=== PATIENT | female | born 1965 | race Caucasian/White ===

== ENCOUNTER 2018-03-18 08:20 | Day surgery (SDC) | payer BC, OTHER ==
[~2018-03-18 08:20] MED LIST: ACETAMINOPHEN 1,000 MG/100 ML BTL IV ONE; CEFAZOLIN 2 Gram 2 GM/50 ML BAG IVPB ONE
[2018-03-18] MEDS ORDERED: FENTANYL PF 100MCG/2ML VIAL IV ONE (08:21)
[2018-03-18] MEDS ORDERED: ROCURONIUM BROMIDE 50MG/5ML VIAL IV ONE (08:21)
[2018-03-18] MEDS ORDERED: MIDAZOLAM HCL 2MG/2ML VIAL IV ONE (08:21)
[2018-03-18] MEDS ORDERED: BUPIVACAINE 0.5% W/EPI MPF 30 ML VIAL IVP ONE (08:21)
[2018-03-18] MEDS ORDERED: MORPHINE SULFATE PF 10MG/10ML VIAL IV ONE (08:21)
[2018-03-18] MEDS ORDERED: BUPIVACAINE LIPOSOME/PF 133MG/10ML VIAL IV ONE (08:21)
[2018-03-18] MEDS ORDERED: ONDANSETRON HCL IV 4 MG/2 ML VIAL IVP ONE (08:21)
[2018-03-18] MEDS ORDERED: KETOROLAC 30 MG/ML VIAL IVP ONE (08:21)
[2018-03-18] MEDS ORDERED: METHYLPREDNISOLONE 40MG/VIAL IM ONE (08:21)
[2018-03-18] MEDS ORDERED: BUPIVACAINE 0.5% (5MG/ML) PF 30ML VIAL IVP ONE (08:21)
[2018-03-18] MEDS ORDERED: SUCCINYLCHOLINE 20 MG/ML 10ML IVP ONE (08:21)
[2018-03-18] MEDS ORDERED: DEXAMETHASONE 4 MG/ML 1ML VIAL IVP ONE (08:21)
[2018-03-18] MEDS ORDERED: LIDOCAINE 2% MDV (20MG/ML) 20ML VIAL IV ONE (08:21)
[2018-03-18] MEDS ORDERED: PROPOFOL 10 MG/ML VIAL IV ONE (08:21)
[2018-03-18] MEDS ORDERED: SEVOFLURANE 250 ML INH ONE (08:21)
--- NOTE | 2018-03-19 08:50 | Operative Note ---
DATE OF SURGERY: 03/18/2018 PREOPERATIVE DIAGNOSIS: Impingement, right shoulder, question tear of the rotator cuff. POSTOPERATIVE DIAGNOSES: 1. Small chronic tear of the rotator cuff. 2. Profound external impingement, right shoulder. 3. Superior glenohumeral labral tear. 4. Arthrosis right distal clavicle. OPERATION: 1. Repair of a chronically torn rotator cuff tear on the right. 2. Right shoulder arthroscopy with intraarticular debridement. 3. Right shoulder open acromioplasty, CA ligament resection, and subacromial bursectomy. 4. Right shoulder distal clavicle resection. Staff Surgeon: Michael Gould MD Anesthesia: General. Preparation: Chloraprep. Individual Considerations: None. PROCEDURE: The patient was taken to the operating room, placed supine on the operating room table. She had a successful induction with general anesthetic. She was placed in a semi-seated beach chair position. Her right arm and shoulder were prepped and draped in the usual fashion. The patient had an examination under anesthesia which showed good motion, no instability. The patient had a posterior portal identified for arthroscopy. Skin was infiltrated with 0.5% Marcaine with epinephrine prior. An 18-gauge spinal needle was then placed in the joint, and the joint was inflated with normal saline. A stab wound was made, and a blunt-tipped trocar for the scope was easily placed in the joint. The joint was inflated with normal saline. An anterior accessory portal was then made just inferior to the intact long head of the biceps tendon, and the joint was irrigated out. The patient's glenohumeral joint was normal. She had what appeared to be at least a partial tear of the rotator cuff underneath with fraying. This was debrided. Fraying of the superior labrum was debrided. A modest synovitis was also debrided. The remainder of the labrum and glenohumeral joint were normal. No loose bodies were seen in the inferior pouch or significant synovitis was seen in the inferior pouch. Subscap was normal. After irrigation, portals were closed with alan. The patient had an anterior approach to the subacromial space and distal clavicle. Skin was again infiltrated with 0.5% Marcaine with epinephrine prior. An anterior deltoid interval was developed. Care was taken not to split the deltoid more than about 4 cm distal to the anterior tip of the acromion to prevent injury to the axillary nerve. Once in the subacromial space, the patient had a cooley of fluid consistent with a tear. The deltoid was then taken subperiosteally off the anterior aspect of a fairly pronounced downsloping anterior acromion, over the top of the intact CA ligament, and off the end of the degenerated distal clavicle. CA ligament was resected with a Bovie. Distal clavicle was resected with an oscillating saw taking about 5 mm. She had a huge spur at the anterior acromion which was sharp. I did an anterior acromioplasty taking about 1 cm tapering towards posteromedially to include the spurs at the AC joint. Most of the downslope was spur. After irrigation and smoothing with a rasp, I was able to remove the bursa and see that she had a small pinhole tear of the rotator cuff. I was able to bring the tear down and cover it and then suture it to the bone just distal to it. This was done after freshening it with a tiny Rongeur. After irrigation, I put the shoulder through a full range of motion to ensure no further impingement. The deltoid was reattached to the remaining acromion with multiple interrupted #2 Vicryl going directly through the bony acromion. The anterior deltoid interval was closed with a running #1 Vicryl. Periosteal cup of the distal clavicle was closed with a running #2 Vicryl. Subcu was closed with 2-0 plus Vicryl and skin was closed with a running 3-0 quill. The patient had about 20 mL of 0.5% Marcaine with epinephrine along with 10 mg of morphine and 40 mg of Depo-Medrol injected into the into the subacromial space through a sterile 18-gauge needle. A sterile bulky compressive dressing and sling were applied. The patient tolerated the procedure well. Needle and sponge counts were correct. Estimated blood loss was minimal. She was taken back to recovery in good condition. There were no complications. CARMEL
== END 2018-03-18 12:40 | disposition home or self-care (01) ==
LOC: SUR 08:20
PROVIDERS: ATTEND Orthopaedic Surgery
DX: M75.101 Unspecified rotator cuff tear or rupture of right shoulder, not specified as traumatic (principal); S43.431A Superior glenoid labrum lesion of right shoulder, initial encounter; M19.011 Primary osteoarthritis, right shoulder; G40.909 Epilepsy, unspecified, not intractable, without status epilepticus; G47.33 Obstructive sleep apnea (adult) (pediatric)
CPT/HCPCS: 23410; 23415; 29822; 01610; 64415; J1885; J2405; J3010; J0690; C9290; 76942; J0330; J1030